=== PATIENT | female | born 1995 | race Caucasian/White ===

== ENCOUNTER 2022-06-22 11:14 | Inpatient (IN) | payer MEDICAID ==
[~2022-06-22] VITALS: Ht 157.5 cm; Wt 53.5 kg
[2022-06-22 13:17] LABS: BASOPHILS % (AUTO) 0.3 % (0.0-2.0); EOSINOPHILS % (AUTO) 0.2 % (1.0-6.0); HEMATOCRIT 38.7 % (36-46); HEMOGLOBIN 13.2 g/dL (12.0-16.0); LYMPHOCYTES # (AUTO) 1.3 K/uL (1.0-4.8); LYMPHOCYTES % (AUTO) 17.8 % (22.0-44.0); MEAN CORPUSCULAR HEMOGLOBIN 32.3 pg (26.0-34.0); MEAN CORPUSCULAR VOLUME 95 fL (80-100); MONOCYTES # (AUTO) 0.3 K/uL (0.1-1.0); MONOCYTES % (AUTO) 3.7 % (2.0-9.0); NEUTROPHILS # (AUTO) 5.6 K/uL (1.8-7.7); PLATELET COUNT (AUTO) 280 K/uL (150-450); RED BLOOD CELL COUNT(AUTO) 4.08 MIL/uL (4.00-5.20); RED CELL DISTRIBUTION WIDTH 12.4 % (11.5-14.5)
[2022-06-22 13:20] LABS: ANION GAP 7 mmol/L (8-16); CALCIUM, TOTAL 8.7 mg/dL (8.8-10.5); CARBON DIOXIDE 28 mmol/L (22-29); CHLORIDE 99 mmol/L (98-107); GLOMERULAR FILTR. RATE CALC > 60 mL/min (>60); GLUCOSE,RANDOM 107 mg/dL (70-110); POTASSIUM 3.3 mmol/L (3.5-5.1); SODIUM SERUM 134 mmol/L (136-145); UREA NITROGEN, BLOOD 11 mg/dL (7-18)
[2022-06-22 13:25] LABS: COVID AG,FIA SOURCE NASOPHARYNGEAL
[2022-06-22 13:35] LABS: ALANINE AMINOTRANSFERASE 51 U/L (12-78); ALBUMIN 3.8 g/dL (3.4-5.0); ALKALINE PHOSPHATASE 83 U/L (46-116); ASPARTATE AMINOTRANSFERASE 39 U/L (15-37); BILIRUBIN,TOTAL 0.4 mg/dL (0.1-1.0); HCG,QUANTITATIVE < 1 mIU/mL (0-6); THYROID STIMULATING HORMONE 0.34 uIU/mL (0.36-3.74); TOTAL PROTEIN, SERUM 8.1 g/dL (6.4-8.2)
[2022-06-22] MEDS ORDERED: POTASSIUM CHLORIDE 20 MEQ ER TABLET PO ONE (14:30)
[2022-06-22 17:52] VITALS: BP 115/75
[2022-06-22] MEDS ORDERED: INFLUENZA VIRUS VACCINE QVS 2022-23 (6MO+)/PF 60 MCG/0.5 ML SYRINGE IM. ONE (18:15)
[2022-06-23] MEDS: ZOLPIDEM TARTRATE 10 MG TABLET PO PRN (02:18)
[2022-06-23 08:25] VITALS: BP 118/74
[2022-06-23] MEDS: LORazepam 2 MG TABLET PO PRN (10:52)
[2022-06-23] MEDS: HALOPERIDOL 5 MG TABLET PO PRN (10:52)
[2022-06-23] MEDS ORDERED: MAGNESIUM HYDROXIDE SUSPENSION 30 ML UDCUP PO PRN (15:45)
[2022-06-23] MEDS ORDERED: ALBUTEROL SULFATE HFA 90 MCG/PUFF 8 GM INHALER IH PRN (15:45)
[2022-06-23] MEDS ORDERED: ACETAMINOPHEN 325 MG TABLET PO PRN (15:45)
[2022-06-23] MEDS ORDERED: GuaiFENesin/D-METHORPHAN [SUGAR-FREE] 200-20MG/10 ML SYRUP UDCUP PO PRN (15:45)
[2022-06-23] MEDS ORDERED: LOPERAMIDE HCL 2 MG CAPSULE PO PRN (15:45)
[2022-06-23] MEDS ORDERED: NICOTINE 14 MG/24 HOUR PATCH TD PRN (15:45)
[2022-06-23] MEDS ORDERED: CloNIDine HCL 0.1 MG TABLET PO PRN (15:45)
[2022-06-23] MEDS ORDERED: IBUPROFEN 400 MG TABLET PO PRN (15:45)
[2022-06-23] MEDS ORDERED: PETROLATUM,WHITE 28 GM JELLY TP PRN (15:45)
[2022-06-23] MEDS ORDERED: MAG HYDROX/AL HYDROX/SIMETH ES 30 ML SUSPENSION UDCUP PO PRN (15:45)
[2022-06-23] MEDS ORDERED: DOCUSATE SODIUM 100 MG CAPSULE PO PRN (15:45)
[2022-06-24] MEDS: QUEtiapine FUMARATE 100 MG TABLET PO SCH ×2 (10:31→20:10)
[2022-06-24 10:54] VITALS: BP 127/84
[2022-06-24] MEDS: LORazepam 2 MG TABLET PO PRN (14:18)
[2022-06-24 20:03] VITALS: BP 138/80
[2022-06-25] MEDS: ONDANSETRON HCL 4 MG TABLET PO PRN ×2 (05:49→12:32)
[2022-06-25] MEDS: HALOPERIDOL 5 MG TABLET PO PRN (08:18)
[2022-06-25] MEDS: QUEtiapine FUMARATE 100 MG TABLET PO SCH ×2 (08:19→21:00)
[2022-06-25 10:08] VITALS: BP 124/86
[2022-06-25 10:54] LABS: POTASSIUM 4.5 mmol/L (3.5-5.1)
[2022-06-25] MEDS: ONDANSETRON HCL 4 MG/2 ML VIAL IM PRN ×2 (13:11→23:34)
[2022-06-25 18:41] LABS: GLUCOMETER DEV NAME(LOC) BV3S.; GLUCOSE,POINT OF CARE 113 MG/DL (70-110)
[2022-06-25 19:53] VITALS: BP 124/86
[2022-06-26 00:23] VITALS: BP 108/70
[2022-06-26 09:10] VITALS: BP 112/69
[2022-06-26] MEDS: LORazepam 2 MG TABLET PO PRN (09:22)
[2022-06-26] MEDS: QUEtiapine FUMARATE 100 MG TABLET PO SCH ×2 (09:22→20:50)
[2022-06-26] MEDS: ONDANSETRON HCL 4 MG TABLET PO PRN (20:50)
[2022-06-26 20:54] VITALS: BP 111/86
[2022-06-27] MEDS: QUEtiapine FUMARATE 100 MG TABLET PO SCH ×2 (07:56→21:50)
[2022-06-27 09:21] VITALS: BP 100/86
[2022-06-27 13:37] VITALS: BP 111/83
[2022-06-27 13:40] VITALS: BP 99/56
[2022-06-27 13:45] VITALS: BP 114/69
[2022-06-27 13:46] LABS: GLUCOMETER DEV NAME(LOC) BV3S.; GLUCOSE,POINT OF CARE 117 MG/DL (70-110)
[2022-06-27 22:00] VITALS: BP 124/84
[2022-06-27] MEDS: ZOLPIDEM TARTRATE 10 MG TABLET PO PRN (22:04)
[2022-06-28] MEDS: QUEtiapine FUMARATE 100 MG TABLET PO SCH ×2 (08:18→20:32)
[2022-06-28 08:24] VITALS: BP 114/66
[2022-06-28] MEDS ORDERED: POTASSIUM CHLORIDE 20 MEQ ER TABLET PO ONE (14:15)
[2022-06-28 15:11] LABS: GLUCOMETER DEV NAME(LOC) POC.BV
[2022-06-28] MEDS ORDERED: LOPERAMIDE HCL 2 MG CAPSULE PO PRN (15:45)
[2022-06-28] MEDS: ONDANSETRON HCL 4 MG/2 ML VIAL IM PRN (18:06)
[2022-06-28 18:21] LABS: GLUCOMETER DEV NAME(LOC) BV3S.; GLUCOSE,POINT OF CARE 102 MG/DL (70-110)
[2022-06-28] MEDS: LevETIRAcetam 500 MG TABLET PO SCH (20:32)
[2022-06-28] MEDS: OMEPRAZOLE 20 MG CAPSULE PO SCH (20:32)
[2022-06-29 07:03] VITALS: BP 107/62
[2022-06-29 07:59] LABS: BASOPHILS % (AUTO) 0.2 % (0.0-2.0); EOSINOPHILS % (AUTO) 2.4 % (1.0-6.0); HEMATOCRIT 43.2 % (36-46); LYMPHOCYTES # (AUTO) 2.5 K/uL (1.0-4.8); MEAN CORPUSCULAR HGB CONC 34.7 G/dL (31.0-37.0); MEAN CORPUSCULAR VOLUME 95 fL (80-100); MONOCYTES # (AUTO) 0.8 K/uL (0.1-1.0); MONOCYTES % (AUTO) 7.1 % (2.0-9.0); NEUTROPHILS # (AUTO) 7.3 K/uL (1.8-7.7); NEUTROPHILS % (AUTO) 67.3 % (40.0-70.0); PLATELET COUNT (AUTO) 263 K/uL (150-450); RED BLOOD CELL COUNT(AUTO) 4.55 MIL/uL (4.00-5.20); RED CELL DISTRIBUTION WIDTH 12.2 % (11.5-14.5)
[2022-06-29 08:26] LABS: ANION GAP 9 mmol/L (8-16); CALCIUM, TOTAL 8.6 mg/dL (8.8-10.5); CARBON DIOXIDE 26 mmol/L (22-29); CHLORIDE 103 mmol/L (98-107); CREATININE 0.78 mg/dL (0.60-1.30); GLOMERULAR FILTR. RATE CALC > 60 mL/min (>60); GLUCOSE,RANDOM 95 mg/dL (70-110); LIPASE 366 U/L (73-393); POTASSIUM 3.9 mmol/L (3.5-5.1); SODIUM SERUM 138 mmol/L (136-145); UREA NITROGEN, BLOOD 14 mg/dL (7-18)
[2022-06-29] MEDS: QUEtiapine FUMARATE 200 MG TABLET PO SCH ×2 (08:26→20:08)
[2022-06-29] MEDS: OMEPRAZOLE 20 MG CAPSULE PO SCH (08:26)
[2022-06-29] MEDS: MetroNIDAZOLE 500 MG TABLET PO SCH ×3 (08:26→16:56)
[2022-06-29] MEDS: LevETIRAcetam 500 MG TABLET PO SCH ×2 (08:26→16:56)
[2022-06-29 20:03] VITALS: BP 113/60
[2022-06-29] MEDS: ZOLPIDEM TARTRATE 10 MG TABLET PO PRN (20:25)
[2022-06-30] MEDS: LevETIRAcetam 500 MG TABLET PO SCH ×2 (08:27→17:05)
[2022-06-30] MEDS: OMEPRAZOLE 20 MG CAPSULE PO SCH (08:27)
[2022-06-30] MEDS: QUEtiapine FUMARATE 200 MG TABLET PO SCH ×2 (08:27→20:15)
[2022-06-30] MEDS: MetroNIDAZOLE 500 MG TABLET PO SCH ×3 (08:27→17:05)
[2022-06-30] MEDS: LORazepam 2 MG TABLET PO PRN ×2 (08:29→19:18)
[2022-06-30 08:35] LABS: APPEARANCE,URINE CLEAR (CLEAR); BILIRUBIN,URINE NEGATIVE (NEGATIVE); GLUCOSE, URINE (UA) NEGATIVE (NEGATIVE); KETONES,URINE NEGATIVE (NEGATIVE); LEUKOCYTE ESTERASE ,URINE SMALL (NEGATIVE); NITRATE,URINE NEGATIVE (NEGATIVE); OCCULT BLOOD,URINE NEGATIVE (NEGATIVE); PROTEIN,URINE TRACE mg/dL (NEGATIVE); SPECIFIC GRAVITIY, URINE 1.022 (1.003-1.030); UROBILINOGEN,URINE <=1.0 mg/dL (<=1.0)
[2022-06-30 09:56] LABS: BACTERIA,URINE Few /HPF (None Seen); RBC,URINE 0-2 /HPF (0-2); SQUAMOUS EPITHELIAL CELL,UR Few /LPF (None Seen); WBC,URINE 0-2 /HPF (0-5)
[2022-06-30 09:57] LABS: CALCIUM OXALATE CRYSTALS,UR Rare /LPF (None Seen)
[2022-06-30 15:36] LABS: AMPHET/METH SCREEN,URINE NEGATIVE (NEGATIVE); BARBITURATE SCREEN, URINE NEGATIVE (NEGATIVE); BENZODIAZEPINES SCREEN,URINE NEGATIVE (NEGATIVE); CANNABINOID SCREEN,URINE NEGATIVE (NEGATIVE); COCAINE SCREEN,URINE NEGATIVE (NEGATIVE); METHADONE SCREEN, URINE NEGATIVE (NEGATIVE); OPIATE SCREEN,URINE NEGATIVE (NEGATIVE); PHENCYCLIDINE SCREEN,URINE NEGATIVE (NEGATIVE)
[2022-06-30 20:03] VITALS: BP 112/62
[2022-06-30] MEDS: ZOLPIDEM TARTRATE 10 MG TABLET PO PRN (20:15)
[2022-07-01 08:20] VITALS: BP 122/86
[2022-07-01] MEDS: QUEtiapine FUMARATE 200 MG TABLET PO SCH ×2 (08:41→20:22)
[2022-07-01] MEDS: OMEPRAZOLE 20 MG CAPSULE PO SCH (08:42)
[2022-07-01] MEDS: LevETIRAcetam 500 MG TABLET PO SCH ×2 (08:42→16:17)
[2022-07-01] MEDS: MetroNIDAZOLE 500 MG TABLET PO SCH ×3 (08:42→16:17)
[2022-07-01] MEDS: HALOPERIDOL 5 MG TABLET PO PRN (23:11)
[2022-07-01] MEDS: LORazepam 2 MG TABLET PO PRN (23:11)
[2022-07-01] MEDS: ZOLPIDEM TARTRATE 10 MG TABLET PO PRN (23:11)
[2022-07-01 23:17] VITALS: BP 130/75
[2022-07-02] MEDS: LevETIRAcetam 500 MG TABLET PO SCH ×2 (08:06→16:55)
[2022-07-02] MEDS: QUEtiapine FUMARATE 200 MG TABLET PO SCH ×2 (08:06→20:27)
[2022-07-02] MEDS: MetroNIDAZOLE 500 MG TABLET PO SCH ×3 (08:06→16:54)
[2022-07-02] MEDS: OMEPRAZOLE 20 MG CAPSULE PO SCH (08:06)
[2022-07-02 08:28] VITALS: BP 108/66
[2022-07-02 20:48] VITALS: BP 110/74
[2022-07-02] MEDS: ZOLPIDEM TARTRATE 10 MG TABLET PO PRN (21:31)
[2022-07-03] MEDS: LevETIRAcetam 500 MG TABLET PO SCH ×2 (08:07→16:21)
[2022-07-03] MEDS: QUEtiapine FUMARATE 200 MG TABLET PO SCH ×2 (08:07→20:43)
[2022-07-03] MEDS: MetroNIDAZOLE 500 MG TABLET PO SCH ×3 (08:07→16:21)
[2022-07-03] MEDS: OMEPRAZOLE 20 MG CAPSULE PO SCH (08:08)
[2022-07-03 08:13] VITALS: BP 110/68
[2022-07-03] MEDS ORDERED: LORazepam 2 MG/ML VIAL ONE (10:26)
[2022-07-03] MEDS ORDERED: DiphenhydrAMINE HCL 50 MG/ML VIAL ONE (10:26)
[2022-07-03] MEDS ORDERED: HALOPERIDOL LACTATE 5 MG/ML VIAL IM ONE (10:30)
[2022-07-03] MEDS ORDERED: LORazepam 2 MG/ML VIAL IM ONE (10:30)
[2022-07-03] MEDS ORDERED: DiphenhydrAMINE HCL 50 MG/ML VIAL IM ONE (10:30)
[2022-07-03 20:00] VITALS: BP 118/76
[2022-07-04] MEDS: HALOPERIDOL 5 MG TABLET PO PRN ×2 (08:05→16:33)
[2022-07-04] MEDS: QUEtiapine FUMARATE 200 MG TABLET PO SCH ×2 (08:05→20:13)
[2022-07-04] MEDS: OMEPRAZOLE 20 MG CAPSULE PO SCH (08:05)
[2022-07-04] MEDS: LORazepam 2 MG TABLET PO PRN ×2 (08:05→16:33)
[2022-07-04] MEDS: MetroNIDAZOLE 500 MG TABLET PO SCH ×3 (08:05→16:33)
[2022-07-04] MEDS: LevETIRAcetam 500 MG TABLET PO SCH ×2 (08:05→16:33)
[2022-07-04 09:00] VITALS: BP 112/68
[2022-07-04 20:13] VITALS: BP 109/61
[2022-07-05 08:17] VITALS: BP 103/72
[2022-07-05] MEDS: MetroNIDAZOLE 500 MG TABLET PO SCH ×3 (09:17→18:28)
[2022-07-05] MEDS: HALOPERIDOL 5 MG TABLET PO PRN (09:17)
[2022-07-05] MEDS: LORazepam 2 MG TABLET PO PRN (09:17)
[2022-07-05] MEDS: LevETIRAcetam 500 MG TABLET PO SCH ×2 (09:17→18:28)
[2022-07-05] MEDS: OMEPRAZOLE 20 MG CAPSULE PO SCH (09:17)
[2022-07-05] MEDS: QUEtiapine FUMARATE 200 MG TABLET PO SCH ×2 (09:17→20:51)
[2022-07-05] MEDS ORDERED: LORazepam 2 MG TABLET PO PRN (13:45)
[2022-07-05 16:26] LABS: GLUCOMETER DEV NAME(LOC) POC.BV
[2022-07-05 20:18] VITALS: BP 108/71
[2022-07-06 08:16] VITALS: BP 114/64
[2022-07-06] MEDS: LevETIRAcetam 500 MG TABLET PO SCH ×2 (08:36→16:39)
[2022-07-06] MEDS: QUEtiapine FUMARATE 200 MG TABLET PO SCH ×2 (08:36→20:34)
[2022-07-06] MEDS: MetroNIDAZOLE 500 MG TABLET PO SCH ×3 (08:36→16:39)
[2022-07-06] MEDS: OMEPRAZOLE 20 MG CAPSULE PO SCH (08:36)
[2022-07-06] MEDS: LORazepam 1 MG TABLET PO PRN (17:22)
[2022-07-06] MEDS: ZOLPIDEM TARTRATE 10 MG TABLET PO PRN (20:34)
[2022-07-06 22:19] VITALS: BP 103/59
[2022-07-07] MEDS: HALOPERIDOL 5 MG TABLET PO PRN (05:00)
[2022-07-07] MEDS: LORazepam 1 MG TABLET PO PRN ×2 (05:00→08:19)
[2022-07-07 08:14] VITALS: BP 110/73
[2022-07-07] MEDS: QUEtiapine FUMARATE 200 MG TABLET PO SCH ×2 (08:18→20:32)
[2022-07-07] MEDS: OMEPRAZOLE 20 MG CAPSULE PO SCH (08:18)
[2022-07-07] MEDS: MetroNIDAZOLE 500 MG TABLET PO SCH ×3 (08:18→16:50)
[2022-07-07] MEDS: LevETIRAcetam 500 MG TABLET PO SCH ×2 (08:18→16:49)
[2022-07-07 20:05] VITALS: BP 107/75
[2022-07-07] MEDS: ZOLPIDEM TARTRATE 10 MG TABLET PO PRN (20:32)
[2022-07-08] MEDS: MetroNIDAZOLE 500 MG TABLET PO SCH (08:21)
[2022-07-08] MEDS: LevETIRAcetam 500 MG TABLET PO SCH (08:21)
[2022-07-08] MEDS: QUEtiapine FUMARATE 200 MG TABLET PO SCH (08:21)
[2022-07-08] MEDS: OMEPRAZOLE 20 MG CAPSULE PO SCH (08:21)
[2022-07-08] MEDS: LORazepam 1 MG TABLET PO PRN (08:24)
[2022-07-08] MEDS: HALOPERIDOL 5 MG TABLET PO PRN (08:24)
[2022-07-08 09:13] VITALS: BP 108/69
[2022-07-08] MEDS ORDERED: LEVE500T8 PO (09:57)
[2022-07-08] MEDS ORDERED: QUET200T30 PO (09:57)
== END 2022-07-08 13:05 | disposition home or self-care (01) | DRG 750 ==
LOC: EMS 11:24 → B3A 15:22
PROVIDERS: ADMIT Psychiatry & Neurology Psychiatry; ATTEND Psychiatry & Neurology Psychiatry
DX: F20.0 Paranoid schizophrenia (principal); R56.9 Unspecified convulsions; E87.1 Hypo-osmolality and hyponatremia; E87.6 Hypokalemia; F11.20 Opioid dependence, uncomplicated; F15.10 Other stimulant abuse, uncomplicated; G47.00 Insomnia, unspecified; Z20.822 Contact with and (suspected) exposure to COVID-19; Z79.899 Other long term (current) drug therapy
CPT/HCPCS: 80048; 80053; 80307; 81001; 82962; 83690; 84132; 84443; 84702; 85025; 99285; G0480; J1200; J1630; J2060; J2405; Q0162

== ENCOUNTER 2022-06-27 14:10 | Emergency (ER) | payer MEDICAID ==
[~2022-06-27] VITALS: Ht 157.5 cm; Wt 50.0 kg
[2022-06-27] MEDS ORDERED: KETOROLAC TROMETHAMINE 30 MG/ML VIAL IVP ONE (14:45)
[2022-06-27] MEDS ORDERED: SODIUM CHLORIDE 0.9% 1,000 ML IV ONE (14:45)
[2022-06-27 15:11] LABS: BASOPHILS % (AUTO) 0.5 % (0.0-2.0); EOSINOPHILS % (AUTO) 0.7 % (1.0-6.0); HEMATOCRIT 49.1 % (36-46); HEMOGLOBIN 16.6 g/dL (12.0-16.0); LYMPHOCYTES # (AUTO) 2.2 K/uL (1.0-4.8); LYMPHOCYTES % (AUTO) 29.9 % (22.0-44.0); MEAN CORPUSCULAR HEMOGLOBIN 32.2 pg (26.0-34.0); MEAN CORPUSCULAR HGB CONC 33.9 G/dL (31.0-37.0); MEAN CORPUSCULAR VOLUME 95 fL (80-100); MONOCYTES # (AUTO) 0.7 K/uL (0.1-1.0); MONOCYTES % (AUTO) 9.8 % (2.0-9.0); NEUTROPHILS # (AUTO) 4.4 K/uL (1.8-7.7); NEUTROPHILS % (AUTO) 59.1 % (40.0-70.0); PLATELET COUNT (AUTO) 301 K/uL (150-450); RED BLOOD CELL COUNT(AUTO) 5.17 MIL/uL (4.00-5.20); RED CELL DISTRIBUTION WIDTH 12.6 % (11.5-14.5)
[2022-06-27 15:19] LABS: ANION GAP 8 mmol/L (8-16); CALCIUM, TOTAL 8.9 mg/dL (8.8-10.5); CARBON DIOXIDE 34 mmol/L (22-29); CHLORIDE 93 mmol/L (98-107); CREATININE 1.01 mg/dL (0.60-1.30); GLOMERULAR FILTR. RATE CALC > 60 mL/min (>60); GLUCOSE,RANDOM 100 mg/dL (70-110); POTASSIUM 3.1 mmol/L (3.5-5.1); SODIUM SERUM 135 mmol/L (136-145); UREA NITROGEN, BLOOD 16 mg/dL (7-18)
[2022-06-27 17:23] VITALS: BP 90/60
== END 2022-06-27 21:36 | disposition home or self-care (01) ==
LOC: EMS 14:29
DX: R56.9 Unspecified convulsions (principal); R51.9 Headache, unspecified; F20.9 Schizophrenia, unspecified; F15.90 Other stimulant use, unspecified, uncomplicated
CPT/HCPCS: 99285; 96374; 70450; 96361; 80048; 85025; 36415; J1885; J7030

== ENCOUNTER 2023-07-02 23:11 | Inpatient (IN) | payer MEDICAID ==
[~2023-07-02] VITALS: Ht 157.5 cm; Wt 55.3 kg
[~2023-07-02 23:11] MED LIST: LEVE500T8 PO; QUET200T30 PO
[2023-07-03 02:02] LABS: BASOPHILS % (AUTO) 0.7 % (0.0-2.0); EOSINOPHILS % (AUTO) 4.3 % (1.0-6.0); HEMOGLOBIN 13.6 g/dL (12.0-16.0); LYMPHOCYTES # (AUTO) 2.4 K/uL (1.0-4.8); LYMPHOCYTES % (AUTO) 37.1 % (22.0-44.0); MEAN CORPUSCULAR HEMOGLOBIN 33.5 pg (26.0-34.0); MEAN CORPUSCULAR HGB CONC 34.9 G/dL (31.0-37.0); MEAN CORPUSCULAR VOLUME 96 fL (80-100); MONOCYTES # (AUTO) 0.5 K/uL (0.1-1.0); MONOCYTES % (AUTO) 8.2 % (2.0-9.0); NEUTROPHILS # (AUTO) 3.2 K/uL (1.8-7.7); NEUTROPHILS % (AUTO) 49.7 % (40.0-70.0); PLATELET COUNT (AUTO) 260 K/uL (150-450); RED BLOOD CELL COUNT(AUTO) 4.07 MIL/uL (4.00-5.20); RED CELL DISTRIBUTION WIDTH 13.2 % (11.5-14.5); WHITE BLOOD COUNT (AUTO) 6.4 K/uL (4.5-11.0)
[2023-07-03] MEDS: LORazepam 2 MG/ML VIAL IM ONE (02:06)
[2023-07-03] MEDS: HALOPERIDOL LACTATE 5 MG/ML VIAL IM ONE (02:06)
[2023-07-03] MEDS: DiphenhydrAMINE HCL 50 MG/ML VIAL IM ONE (02:06)
[2023-07-03 02:11] LABS: ANION GAP 7 mmol/L (8-16); CALCIUM, TOTAL 8.9 mg/dL (8.8-10.5); CARBON DIOXIDE 30 mmol/L (22-29); CHLORIDE 100 mmol/L (98-107); GLOMERULAR FILTR. RATE CALC > 60 mL/min (>60); GLUCOSE,RANDOM 83 mg/dL (70-110); POTASSIUM 3.6 mmol/L (3.5-5.1); SODIUM SERUM 137 mmol/L (136-145); UREA NITROGEN, BLOOD 13 mg/dL (7-18)
[2023-07-03 02:17] LABS: ALANINE AMINOTRANSFERASE 160 U/L (12-78); ALBUMIN 3.6 g/dL (3.4-5.0); ALKALINE PHOSPHATASE 106 U/L (46-116); ASPARTATE AMINOTRANSFERASE 122 U/L (15-37); BILIRUBIN,TOTAL 0.5 mg/dL (0.1-1.0); TOTAL PROTEIN, SERUM 7.1 g/dL (6.4-8.2)
[2023-07-03 02:19] LABS: ALCOHOL, BLOOD (SERUM) < 3 mg/dL (0-10)
[2023-07-03 02:45] LABS: COVID AG,FIA SOURCE NASAL SWAB
[2023-07-03 03:03] LABS: SARS-COV2 (COVID) ANTIGEN,FIA Negative (Negative)
[2023-07-03 14:43] LABS: PH,URINE DRUG SCREEN 7.5 (5.0-8.0)
[2023-07-03 14:52] LABS: ALCOHOL, URINE DRUG SCREEN NEGATIVE (NEGATIVE); AMPHET/METH SCREEN,URINE POSITIVE (NEGATIVE); BARBITURATE SCREEN, URINE NEGATIVE (NEGATIVE); BENZODIAZEPINES SCREEN,URINE NEGATIVE (NEGATIVE); CANNABINOID SCREEN,URINE POSITIVE (NEGATIVE); COCAINE SCREEN,URINE NEGATIVE (NEGATIVE); METHADONE SCREEN, URINE NEGATIVE (NEGATIVE); OPIATE SCREEN,URINE NEGATIVE (NEGATIVE); PHENCYCLIDINE SCREEN,URINE NEGATIVE (NEGATIVE)
[2023-07-03 18:05] LABS: APPEARANCE,URINE HAZY (CLEAR); BILIRUBIN,URINE NEGATIVE (NEGATIVE); COLOR,URINE LIGHT YELLOW (YELLOW); GLUCOSE, URINE (UA) NEGATIVE (NEGATIVE); KETONES,URINE NEGATIVE (NEGATIVE); LEUKOCYTE ESTERASE ,URINE LARGE (NEGATIVE); NITRATE,URINE POSITIVE (NEGATIVE); OCCULT BLOOD,URINE NEGATIVE (NEGATIVE); PH,URINE 7.5 (5.0-8.0); PROTEIN,URINE NEGATIVE (NEGATIVE); UROBILINOGEN,URINE <=1.0 mg/dL (<=1.0)
[2023-07-03 19:16] LABS: BACTERIA,URINE Moderate /HPF (None Seen); RBC,URINE 0-2 /HPF (0-2); SQUAMOUS EPITHELIAL CELL,UR Few /LPF (None Seen)
[2023-07-03 23:50] VITALS: BP 96/60; PULSE 81; RESP 18; TEMP 97.9; O2SAT 97
[2023-07-04] VITALS (11 sets, daily range): BP systolic 96–135; BP diastolic 60–85; PULSE 70–103; RESP 15–19; TEMP 97–98.1; O2SAT 95–99
[2023-07-04] MEDS ORDERED: INFLUENZA VIRUS VACCINE QVS 2023-24 (6MO+)/PF 60 MCG/0.5 ML SYRINGE IM. ONE (00:15)
[2023-07-04] MEDS ORDERED: PNEUMOCOCCAL VACCINE POLYVALENT 0.5 ML SYRINGE [PPSV23] IM. ONE (00:45)
[2023-07-04] MEDS ORDERED: GuaiFENesin/D-METHORPHAN [SUGAR-FREE] 200-20MG/10 ML SYRUP UDCUP PO PRN (10:30)
[2023-07-04] MEDS ORDERED: IBUPROFEN 600 MG TABLET PO PRN (10:30)
[2023-07-04] MEDS ORDERED: LOPERAMIDE HCL 2 MG CAPSULE PO PRN (10:30)
[2023-07-04] MEDS ORDERED: MAG HYDROX/ALUMINUM HYD/SIMETH ES 30 ML SUSPENSION UDCUP PO PRN (10:30)
[2023-07-04] MEDS ORDERED: HydrOXYzine PAMOATE 50 MG CAPSULE PO PRN ×2 (10:30)
[2023-07-04] MEDS ORDERED: TUBERCULIN, PURIFIED PROTEIN DERIVATIVE 5 TU/0.1 ML SYRINGE ID ONE (10:30)
[2023-07-04] MEDS ORDERED: MAGNESIUM HYDROXIDE SUSPENSION 30 ML UDCUP PO PRN (10:30)
[2023-07-04] MEDS: PALIPERIDONE PALMITATE 234 MG/1.5 ML SYRINGE IM ONE (12:03)
[2023-07-04] MEDS: CloNIDine HCL 0.1 MG TABLET PO SCH (12:22)
[2023-07-04] MEDS: THIAMINE 100 MG TABLET PO SCH (16:43)
[2023-07-04] MEDS: LevETIRAcetam 500 MG TABLET PO SCH (16:44)
[2023-07-04] MEDS: LORazepam 2 MG TABLET PO PRN (20:45)
[2023-07-04] MEDS: MELATONIN 5 MG TABLET PO SCH (21:10)
[2023-07-04] MEDS: NALTREXONE HCL 50 MG TABLET PO SCH (21:10)
[2023-07-04] MEDS: OLANZapine 5 MG RAPDIS TABLET PO SCH (21:10)
[2023-07-04] MEDS: ZOLPIDEM TARTRATE 10 MG TABLET PO PRN (22:05)
[2023-07-05] VITALS (8 sets, daily range): BP systolic 93–110; BP diastolic 57–79; PULSE 70–93; RESP 16–19; TEMP 97.2–98.6; O2SAT 98
[2023-07-05 07:35] LABS: CHOL/HDL RATIO 1.7 (3.9-5.7); FREE T4 (FREE THYROXINE) 1.27 ng/dL (0.76-1.46); THYROID STIMULATING HORMONE 0.27 uIU/mL (0.36-3.74)
[2023-07-05] MEDS: FLUoxetine HCL 20 MG CAPSULE PO SCH (08:38)
[2023-07-05] MEDS: OMEGA-3/DHA/EPA/FISH OIL 1,000 MG CAPSULE PO SCH (08:38)
[2023-07-05] MEDS: MULTIVITAMINS WITH MINERALS, THERAPEUTIC TABLET PO SCH (08:38)
[2023-07-05] MEDS: FOLIC ACID 1 MG TABLET PO SCH (08:39)
[2023-07-05] MEDS: NITROFURANTOIN MONOHYD/M-CRYST 100 MG CAPSULE [MACROBID] PO SCH (19:54)
[2023-07-06 02:02] VITALS: BP 106/65; PULSE 85; RESP 19; TEMP 97.3
[2023-07-06 06:50] VITALS: BP 118/80; PULSE 80; RESP 19; TEMP 98.1
[2023-07-06] MEDS: PROMETHAZINE HCL 25 MG TABLET PO PRN (09:34)
[2023-07-06 09:44] VITALS: BP 125/77; PULSE 102; RESP 18; TEMP 99
[2023-07-06 10:07] LABS: HEPATITIS A ANTIBODY IGM Negative (Negative); HEPATITIS B CORE IGM Negative (Negative)
[2023-07-06 21:45] VITALS: BP 126/85; PULSE 104; RESP 18; TEMP 98.6; O2SAT 97
[2023-07-06] MEDS: OLANZapine 10 MG RAPDIS TABLET PO SCH (22:05)
[2023-07-07] VITALS (7 sets, daily range): BP systolic 118–128; BP diastolic 78–89; PULSE 86–117; RESP 18–19; TEMP 97.2–98.2; O2SAT 98
[2023-07-07] MEDS: CloNIDine HCL 0.1 MG TABLET PO PRN (00:55)
[2023-07-08 06:18] VITALS: BP 128/82; PULSE 86; RESP 18
[2023-07-08 10:16] VITALS: BP 126/75; PULSE 90; RESP 18; TEMP 97.9; O2SAT 96
[2023-07-08 12:29] VITALS: BP 125/70; PULSE 70
[2023-07-08] MEDS: PALIPERIDONE PALMITATE 156 MG/ML SYRINGE IM ONE (12:57)
[2023-07-08 17:12] VITALS: BP 118/68; PULSE 65
[2023-07-08 21:53] VITALS: BP 130/73; PULSE 99; RESP 18; TEMP 96.6
[2023-07-09 06:25] VITALS: BP 121/72; PULSE 91; RESP 18; TEMP 97.1
[2023-07-09] MEDS: HALOPERIDOL 5 MG TABLET PO PRN (11:51)
[2023-07-09 12:24] VITALS: BP 113/71; PULSE 106; RESP 18; TEMP 97.7; O2SAT 100
[2023-07-09] MEDS ORDERED: FLUO20CA36 PO (18:15)
[2023-07-09] MEDS ORDERED: OMEG-135 PO (18:15)
[2023-07-09] MEDS ORDERED: LEVE500T8 PO (18:15)
[2023-07-09] MEDS ORDERED: OLAN10TA26 PO (18:15)
[2023-07-09] MEDS ORDERED: MELA5TAB40 PO (18:15)
[2023-07-09] MEDS ORDERED: NALT50TA33 PO (18:15)
[2023-07-09 21:38] VITALS: BP 132/85; PULSE 93; RESP 18; TEMP 97.9
[2023-07-09 23:06] VITALS: BP 132/88; PULSE 103; RESP 18; TEMP 98.2; O2SAT 98
[2023-07-10 06:19] VITALS: BP 119/69; PULSE 96; TEMP 97.5
[2023-07-10 07:39] LABS: ALANINE AMINOTRANSFERASE 165 U/L (12-78); ALKALINE PHOSPHATASE 122 U/L (46-116); ANION GAP 9 mmol/L (8-16); ASPARTATE AMINOTRANSFERASE 73 U/L (15-37); BILIRUBIN,TOTAL 0.4 mg/dL (0.1-1.0); CALCIUM, TOTAL 8.5 mg/dL (8.8-10.5); CARBON DIOXIDE 24 mmol/L (22-29); CHLORIDE 102 mmol/L (98-107); CREATININE 0.53 mg/dL (0.60-1.30); GLOMERULAR FILTR. RATE CALC > 60 mL/min (>60); GLUCOSE,RANDOM 98 mg/dL (70-110); SODIUM SERUM 135 mmol/L (136-145); TOTAL PROTEIN, SERUM 6.8 g/dL (6.4-8.2); UREA NITROGEN, BLOOD 12 mg/dL (7-18)
[2023-07-10 09:22] VITALS: BP 112/78; PULSE 88; RESP 19; TEMP 98.7
[2023-07-10 12:36] VITALS: BP 123/81
[2023-07-10 18:12] VITALS: BP 118/80
[2023-07-10 20:02] VITALS: BP 97/57; PULSE 109; RESP 18; TEMP 98.6
[2023-07-10 22:00] VITALS: BP 103/67; PULSE 97; RESP 18; TEMP 98
[2023-07-10] MEDS ORDERED: PALIPERIDONE PALMITATE 234 MG/1.5 ML SYRINGE IM ONE (23:15)
[2023-07-11 06:00] VITALS: BP 114/73; PULSE 102; RESP 18; TEMP 97.8
[2023-07-11 09:22] VITALS: BP 106/69; PULSE 100; RESP 18; TEMP 97.5
[2023-07-11 13:07] LABS: HIV 1-2 SCREEN 4TH GEN W/RFLX Non Reactive (Non Reactive)
[2023-07-11 13:19] VITALS: BP 101/70; PULSE 109; RESP 18; TEMP 97.7
[2023-07-11] MEDS: DIVALPROEX SODIUM 500 MG ER TABLET PO SCH (20:51)
[2023-07-11 21:01] VITALS: BP 103/71; PULSE 102; RESP 18; TEMP 97.6
[2023-07-12 08:48] VITALS: BP 110/61; PULSE 115; RESP 17; TEMP 99.1
[2023-07-12 10:07] LABS: HEPATITIS C AB (EIA) Reactive (Non Reactive); HEPATITIS C RT-PCR,QNT 578000 IU/mL
[2023-07-12 16:54] VITALS: BP 119/86; PULSE 119; RESP 18; TEMP 98.1
[2023-07-12 20:42] VITALS: BP 98/53; PULSE 107; RESP 18; TEMP 96.9
[2023-07-13 06:18] VITALS: BP 103/77; PULSE 109; RESP 18; TEMP 97.6
[2023-07-13 08:56] VITALS: BP 100/60; PULSE 110; RESP 18; TEMP 98.1; TEMP 98.8
[2023-07-13 20:33] VITALS: BP 109/68; PULSE 113; RESP 18; TEMP 98.8
[2023-07-13 20:47] VITALS: BP 105/63; PULSE 72; RESP 18; TEMP 97.5
[2023-07-13 22:10] VITALS: BP 100/57; PULSE 92; RESP 18; TEMP 97.4
[2023-07-14 06:18] VITALS: BP 98/54; PULSE 89; RESP 18; TEMP 97.6
[2023-07-14 08:57] VITALS: BP 116/74; PULSE 100; RESP 18; TEMP 98.4
[2023-07-14] MEDS ORDERED: PALIPERIDONE PALMITATE 156 MG/ML SYRINGE IM ONE (09:00)
[2023-07-14 20:20] VITALS: BP 106/63; PULSE 106; RESP 18; TEMP 97.5
[2023-07-14 22:00] VITALS: BP 97/54; PULSE 92; RESP 18
[2023-07-15 06:35] VITALS: BP 92/56; PULSE 90; RESP 18
[2023-07-15 08:10] VITALS: BP 105/75; PULSE 105; RESP 16; TEMP 97.8
[2023-07-15 11:25] VITALS: BP 113/69; PULSE 102; RESP 18
[2023-07-15 16:22] VITALS: BP 106/62; PULSE 105; RESP 18
[2023-07-15] MEDS: MAG HYDROX/ALUMINUM HYD/SIMETH ES 30 ML SUSPENSION UDCUP PO PRN (18:16)
[2023-07-15] MEDS: ACETAMINOPHEN 325 MG TABLET PO PRN (18:17)
[2023-07-15 20:00] VITALS: BP 105/69; PULSE 93; RESP 20; TEMP 97.5
[2023-07-15 21:57] VITALS: BP 95/55; PULSE 92; RESP 18
[2023-07-16 06:25] VITALS: BP 106/66; PULSE 109; RESP 18; TEMP 98
[2023-07-16 08:11] VITALS: BP 119/73; PULSE 102; RESP 16; TEMP 98
[2023-07-16 21:55] VITALS: BP 91/57; PULSE 98; RESP 18
[2023-07-17 06:10] VITALS: BP 110/70; PULSE 18; RESP 18; TEMP 97.6
[2023-07-17 08:23] VITALS: BP 98/65; PULSE 18; RESP 18; TEMP 98.6
== END 2023-07-17 14:00 | disposition home or self-care (01) | DRG 750 ==
LOC: EMS 23:12 → 3EC 07-03 21:05
PROVIDERS: ADMIT Psychiatry & Neurology Psychiatry; ATTEND Psychiatry & Neurology Psychiatry
PROC: GZHZZZZ Group Psychotherapy (ICD-10-PCS; principal; 2023-07-05)
PROC: GZ51ZZZ Individual Psychotherapy, Behavioral (ICD-10-PCS; 2023-07-05)
PROC: GZ58ZZZ Individual Psychotherapy, Cognitive-Behavioral (ICD-10-PCS; 2023-07-05)
DX: F20.0 Paranoid schizophrenia (principal); R45.851 Suicidal ideations; N39.0 Urinary tract infection, site not specified; Z59.00 Homelessness unspecified; G47.00 Insomnia, unspecified; J44.9 Chronic obstructive pulmonary disease, unspecified; F90.9 Attention-deficit hyperactivity disorder, unspecified type; Z20.822 Contact with and (suspected) exposure to COVID-19; F19.10 Other psychoactive substance abuse, uncomplicated; F11.90 Opioid use, unspecified, uncomplicated; F15.10 Other stimulant abuse, uncomplicated; Z79.899 Other long term (current) drug therapy; Z91.199 Patient's noncompliance with other medical treatment and regimen due to unspecified reason
CPT/HCPCS: 80053; 80061; 80074; 80164; 80307; 81001; 83036; 84439; 84443; 84703; 85025; 86592; 87086; 87186; 87389; 87491; 87522; 87591; 99291; G0480; J1200; J1630; J2060; Q9967

== ENCOUNTER 2024-01-27 04:06 | Emergency (ER) | payer MEDICAID, OTHER ==
[~2024-01-27 04:06] MED LIST changes: +FLUO-418 PO; +MELA5TAB40 PO; +NALT50TA33 PO; +OLAN10TA26 PO; +OMEG-135 PO; -QUET200T30 PO
== END 2024-01-27 04:54 | disposition left against medical advice (07) ==
LOC: EMS 04:06
DX: R50.9 Fever, unspecified (principal); Z53.21 Procedure and treatment not carried out due to patient leaving prior to being seen by health care provider

== ENCOUNTER 2024-02-23 10:32 | Inpatient (IN) | payer MEDICAID, OTHER ==
[~2024-02-23] VITALS: Ht 152.4 cm; Wt 47.6 kg
[2024-02-23] MEDS ORDERED: LORazepam 2 MG/ML VIAL ONE (11:24)
[2024-02-23] MEDS ORDERED: DiphenhydrAMINE HCL 50 MG/ML VIAL ONE (11:24)
[2024-02-23] MEDS ORDERED: HALOPERIDOL LACTATE 5 MG/ML VIAL ONE (11:24)
[2024-02-23] MEDS: DiphenhydrAMINE HCL 50 MG/ML VIAL IM ONE (11:33)
[2024-02-23] MEDS: HALOPERIDOL LACTATE 5 MG/ML VIAL IM ONE (11:34)
[2024-02-23] MEDS: LORazepam 2 MG/ML VIAL IM ONE (11:34)
[2024-02-23 12:04] LABS: COVID AG,FIA SOURCE NASAL SWAB
[2024-02-23 12:19] LABS: BASOPHILS % (AUTO) 0.3 % (0.0-2.0); EOSINOPHILS % (AUTO) 4.4 % (1.0-6.0); HEMATOCRIT 37.6 % (36-46); HEMOGLOBIN 12.5 g/dL (12.0-16.0); LYMPHOCYTES # (AUTO) 1.9 K/uL (1.0-4.8); LYMPHOCYTES % (AUTO) 40.3 % (22.0-44.0); MEAN CORPUSCULAR HEMOGLOBIN 31.6 pg (26.0-34.0); MEAN CORPUSCULAR HGB CONC 33.2 G/dL (31.0-37.0); MEAN CORPUSCULAR VOLUME 95 fL (80-100); MONOCYTES # (AUTO) 0.5 K/uL (0.1-1.0); MONOCYTES % (AUTO) 11.1 % (2.0-9.0); NEUTROPHILS # (AUTO) 2.1 K/uL (1.8-7.7); NEUTROPHILS % (AUTO) 43.9 % (40.0-70.0); PLATELET COUNT (AUTO) 221 K/uL (150-450); RED BLOOD CELL COUNT(AUTO) 3.96 MIL/uL (4.00-5.20); WHITE BLOOD COUNT (AUTO) 4.7 K/uL (4.5-11.0)
[2024-02-23 12:23] LABS: SARS-COV2 (COVID) ANTIGEN,FIA Negative (Negative)
[2024-02-23 12:31] LABS: ANION GAP 5 mmol/L (8-16); CALCIUM, TOTAL 8.2 mg/dL (8.8-10.5); CARBON DIOXIDE 29 mmol/L (22-29); CHLORIDE 103 mmol/L (98-107); CREATININE 0.74 mg/dL (0.60-1.30); GLOMERULAR FILTR. RATE CALC > 60 mL/min (>60); GLUCOSE,RANDOM 78 mg/dL (70-110); POTASSIUM 3.7 mmol/L (3.5-5.1); SODIUM SERUM 137 mmol/L (136-145); UREA NITROGEN, BLOOD 11 mg/dL (7-18)
[2024-02-23 12:40] LABS: ALCOHOL, BLOOD (SERUM) < 3 mg/dL (0-10)
[2024-02-23] MEDS ORDERED: ZOLPIDEM TARTRATE 10 MG TABLET PO PRN (17:00)
[2024-02-24 01:53] VITALS: O2SAT 100
[2024-02-24 06:50] VITALS: BP 99/63; PULSE 75; RESP 17; TEMP 97.8; O2SAT 98
[2024-02-24 12:00] VITALS: BP 107/69; PULSE 83; RESP 18; TEMP 97.8; O2SAT 98
[2024-02-24] MEDS ORDERED: CloNIDine HCL 0.1 MG TABLET PO PRN (16:30)
[2024-02-24] MEDS ORDERED: PETROLATUM,WHITE 28 GM JELLY TP PRN (16:30)
[2024-02-24] MEDS ORDERED: ONDANSETRON 4 MG TABLET PO PRN (16:30)
[2024-02-24] MEDS ORDERED: MAGNESIUM HYDROXIDE SUSPENSION 30 ML UDCUP PO PRN (16:30)
[2024-02-24] MEDS ORDERED: ALBUTEROL SULFATE HFA 90 MCG/PUFF 8 GM INHALER IH PRN (16:30)
[2024-02-24] MEDS ORDERED: IBUPROFEN 600 MG TABLET PO PRN (16:30)
[2024-02-24] MEDS ORDERED: DOCUSATE SODIUM 100 MG CAPSULE PO PRN (16:30)
[2024-02-24] MEDS ORDERED: ACETAMINOPHEN 325 MG TABLET PO PRN (16:30)
[2024-02-24] MEDS ORDERED: BENZOCAINE/MENTHOL LOZENGE PO PRN (16:30)
[2024-02-24] MEDS ORDERED: MAG HYDROX/ALUMINUM HYD/SIMETH ES 30 ML SUSPENSION UDCUP PO PRN (16:30)
[2024-02-24] MEDS ORDERED: BACITRACIN 28 GM OINTMENT TP PRN (16:30)
[2024-02-24] MEDS ORDERED: OMEPRAZOLE 20 MG CAPSULE PO PRN (16:30)
[2024-02-24] MEDS: LevETIRAcetam 500 MG TABLET PO SCH (16:54)
[2024-02-24 16:55] VITALS: BP 105/76; PULSE 86; RESP 16; TEMP 98.3; O2SAT 98
[2024-02-24 20:00] VITALS: BP 100/63; PULSE 91; RESP 17; TEMP 97.5; O2SAT 98
[2024-02-24] MEDS: NALTREXONE HCL 50 MG TABLET PO SCH (20:59)
[2024-02-25 08:12] VITALS: BP 116/74; PULSE 78; RESP 16; TEMP 97.6; O2SAT 96
[2024-02-25 09:48] VITALS: RESP 20
[2024-02-25] MEDS ORDERED: LORazepam 2 MG/ML VIAL ONE (09:53)
[2024-02-25] MEDS: LORazepam 2 MG/ML VIAL IM ONE (09:58)
[2024-02-25] MEDS: INFLUENZA VIRUS VACCINE TVS (6MO+) 2024-25/PF 45 MCG/0.5 ML SYRINGE IM. ONE (17:18)
[2024-02-25 20:43] VITALS: BP 116/71; PULSE 90; RESP 17; TEMP 97.8; O2SAT 98
[2024-02-26 04:43] VITALS: BP 107/76; PULSE 101; RESP 18; TEMP 98; O2SAT 98
[2024-02-26] MEDS: LORazepam 2 MG TABLET PO PRN (04:44)
[2024-02-26] MEDS: HALOPERIDOL 5 MG TABLET PO PRN (04:44)
[2024-02-26] MEDS: LOPERAMIDE HCL 2 MG CAPSULE PO PRN (09:02)
[2024-02-26 09:11] VITALS: BP 104/56; PULSE 136; RESP 18; TEMP 96.5; O2SAT 98
[2024-02-26 21:44] VITALS: BP 109/74; PULSE 84; RESP 18; TEMP 97.1; O2SAT 98
[2024-02-27] MEDS ORDERED: VALPROIC ACID 250 MG CAPSULE PO SCH (09:00)
== END 2024-02-27 07:26 | disposition short-term general hospital (02) | DRG 753 ==
LOC: EMS 10:38 → B3A 02-24 02:57
PROVIDERS: ADMIT Psychiatry & Neurology Psychiatry; ATTEND Psychiatry & Neurology Psychiatry
DX: F31.9 Bipolar disorder, unspecified (principal); F20.0 Paranoid schizophrenia; G40.909 Epilepsy, unspecified, not intractable, without status epilepticus; Z20.822 Contact with and (suspected) exposure to COVID-19; B18.2 Chronic viral hepatitis C; K59.00 Constipation, unspecified; G47.00 Insomnia, unspecified; F19.10 Other psychoactive substance abuse, uncomplicated; Z87.891 Personal history of nicotine dependence
CPT/HCPCS: 80048; 85025; 99285; G0480; J1200; J1630; J2060

== ENCOUNTER → 2024-02-25 | Emergency (ER) | payer MEDICAID, OTHER ==
[~2024-02-25] VITALS: Ht 162.6 cm; Wt 54.5 kg
[2024-02-25 10:45] VITALS: TEMP 98.3
[2024-02-25 12:13] VITALS: BP 132/75; PULSE 91; RESP 16; O2SAT 97
== END | disposition still patient (30) ==
LOC: EMS 10:30
DX: F41.0 Panic disorder [episodic paroxysmal anxiety] (principal); F25.9 Schizoaffective disorder, unspecified; F17.210 Nicotine dependence, cigarettes, uncomplicated; F15.90 Other stimulant use, unspecified, uncomplicated
CPT/HCPCS: 99285; Z7502

== ENCOUNTER 2024-02-28 15:59 | Inpatient (IN) | payer MEDICAID, OTHER ==
[~2024-02-28] VITALS: Ht 157.5 cm; Wt 53.6 kg
[2024-02-28 16:35] LABS: BASOPHILS % (AUTO) 0.6 % (0.0-2.0); EOSINOPHILS % (AUTO) 0.6 % (1.0-6.0); HEMATOCRIT 44.9 % (36-46); HEMOGLOBIN 14.9 g/dL (12.0-16.0); MEAN CORPUSCULAR HEMOGLOBIN 31.5 pg (26.0-34.0); MEAN CORPUSCULAR HGB CONC 33.2 G/dL (31.0-37.0); MEAN CORPUSCULAR VOLUME 95 fL (80-100); MONOCYTES # (AUTO) 0.8 K/uL (0.1-1.0); MONOCYTES % (AUTO) 10.9 % (2.0-9.0); NEUTROPHILS # (AUTO) 3.6 K/uL (1.8-7.7); NEUTROPHILS % (AUTO) 47.9 % (40.0-70.0); PLATELET COUNT (AUTO) 293 K/uL (150-450); RED BLOOD CELL COUNT(AUTO) 4.72 MIL/uL (4.00-5.20); RED CELL DISTRIBUTION WIDTH 14.1 % (11.5-14.5); WHITE BLOOD COUNT (AUTO) 7.6 K/uL (4.5-11.0)
[2024-02-28 16:42] LABS: COVID AG,FIA SOURCE NASAL SWAB
[2024-02-28 16:47] LABS: ANION GAP 10 mmol/L (8-16); CALCIUM, TOTAL 8.2 mg/dL (8.8-10.5); CARBON DIOXIDE 25 mmol/L (22-29); CHLORIDE 102 mmol/L (98-107); CREATININE 0.96 mg/dL (0.60-1.30); GLOMERULAR FILTR. RATE CALC > 60 mL/min (>60); GLUCOSE,RANDOM 77 mg/dL (70-110); POTASSIUM 4.1 mmol/L (3.5-5.1); SODIUM SERUM 137 mmol/L (136-145); UREA NITROGEN, BLOOD 13 mg/dL (7-18)
[2024-02-28 16:49] LABS: ALCOHOL, BLOOD (SERUM) < 3 mg/dL (0-10)
[2024-02-28 17:30] LABS: ALCOHOL, URINE DRUG SCREEN NEGATIVE (NEGATIVE); AMPHET/METH SCREEN,URINE POSITIVE (NEGATIVE); BARBITURATE SCREEN, URINE NEGATIVE (NEGATIVE); BENZODIAZEPINES SCREEN,URINE NEGATIVE (NEGATIVE); CANNABINOID SCREEN,URINE NEGATIVE (NEGATIVE); COCAINE SCREEN,URINE NEGATIVE (NEGATIVE); METHADONE SCREEN, URINE NEGATIVE (NEGATIVE); OPIATE SCREEN,URINE NEGATIVE (NEGATIVE); PHENCYCLIDINE SCREEN,URINE NEGATIVE (NEGATIVE)
[2024-02-28 17:47] LABS: SARS-COV2 (COVID) ANTIGEN,FIA Negative (Negative)
[2024-02-28] MEDS: LORazepam 2 MG TABLET PO PRN (20:13)
[2024-02-28] MEDS: HALOPERIDOL 5 MG TABLET PO PRN (20:31)
[2024-02-28] MEDS: DiphenhydrAMINE HCL 50 MG/ML VIAL IM ONE (20:54)
[2024-02-28] MEDS: LORazepam 2 MG/ML VIAL IM ONE (20:55)
[2024-02-28] MEDS: HALOPERIDOL LACTATE 5 MG/ML VIAL IM ONE (20:59)
[2024-02-29 00:46] VITALS: O2SAT 98
[2024-02-29] MEDS: LOPERAMIDE HCL 2 MG CAPSULE PO ONE (03:33)
[2024-02-29 08:05] LABS: HEMOGLOBIN A1C 5.1 % (3.8-5.6)
[2024-02-29 08:08] LABS: CHOL/HDL RATIO 1.7 (3.9-5.7)
[2024-02-29 08:18] LABS: APPEARANCE,URINE HAZY (CLEAR); BILIRUBIN,URINE NEGATIVE (NEGATIVE); COLOR,URINE LIGHT YELLOW (YELLOW); GLUCOSE, URINE (UA) NEGATIVE (NEGATIVE); KETONES,URINE TRACE mg/dL (NEGATIVE); LEUKOCYTE ESTERASE ,URINE NEGATIVE (NEGATIVE); NITRATE,URINE POSITIVE (NEGATIVE); OCCULT BLOOD,URINE LARGE (NEGATIVE); PROTEIN,URINE NEGATIVE (NEGATIVE); SPECIFIC GRAVITIY, URINE 1.014 (1.003-1.030); UROBILINOGEN,URINE <=1.0 mg/dL (<=1.0)
[2024-02-29 08:33] LABS: BACTERIA,URINE Many /HPF (None Seen); CALCIUM OXALATE CRYSTALS,UR Many /LPF (None Seen); WBC,URINE 0-2 /HPF (0-5)
[2024-02-29] MEDS: CEPHALEXIN MONOHYDRATE 500 MG CAPSULE PO ONE (09:04)
[2024-02-29 09:23] VITALS: BP 118/78; PULSE 107; RESP 16; TEMP 98.2; O2SAT 100
[2024-02-29] MEDS: LevETIRAcetam 500 MG TABLET PO SCH (16:59)
[2024-02-29] MEDS: VALPROIC ACID 250 MG CAPSULE PO SCH (16:59)
[2024-02-29 17:00] VITALS: BP 120/80; PULSE 101; RESP 20; TEMP 98.9; O2SAT 98
[2024-02-29 20:15] VITALS: BP 117/71; PULSE 110; RESP 18; TEMP 97.9; O2SAT 97
[2024-02-29] MEDS: OLANZapine 10 MG TABLET PO SCH (21:30)
[2024-03-01 06:06] LABS: HEPATITIS A ANTIBODY IGM Negative (Negative); HEPATITIS B CORE IGM Negative (Negative); HIV 1-2 SCREEN 4TH GEN W/RFLX Non Reactive (Non Reactive)
[2024-03-01 07:07] LABS: TREPONEMA PALLIDUM AB -TPPA Reactive (Non Reactive)
[2024-03-01 10:25] VITALS: BP 115/71; PULSE 115; RESP 18; TEMP 99; O2SAT 98
[2024-03-01 12:06] LABS: RPR QUANT. (TITER) 1:32 titer (NonRea<1:1)
[2024-03-01 20:24] VITALS: BP 112/76; PULSE 108; RESP 18; TEMP 98.4; O2SAT 98
[2024-03-02 10:09] VITALS: BP 108/70; PULSE 100; RESP 17; TEMP 96.8; O2SAT 98
[2024-03-02 20:24] VITALS: BP 96/62; PULSE 105; RESP 16; TEMP 97.6; O2SAT 98
[2024-03-02] MEDS: PENICILLIN G BENZATHINE LA 2,400,000 UNITS/4 ML SYRINGE IM ONE (20:56)
[2024-03-03] MEDS: PNEUMOCOCCAL VACCINE POLYVALENT 0.5 ML SYRINGE [PPSV23] IM. ONE (08:24)
[2024-03-03] MEDS: INFLUENZA VIRUS VACCINE TVS (6MO+) 2024-25/PF 45 MCG/0.5 ML SYRINGE IM. ONE (08:24)
[2024-03-03 08:54] VITALS: RESP 16
[2024-03-03 20:22] VITALS: BP 130/78; PULSE 110; RESP 18; TEMP 97.6; O2SAT 100
[2024-03-04] MEDS: ZOLPIDEM TARTRATE 10 MG TABLET PO PRN (01:31)
[2024-03-04 08:46] VITALS: RESP 16
== END 2024-03-04 19:02 | disposition home or self-care (01) | DRG 750 ==
LOC: EMS 15:59 → 3EC 02-29 09:19 → B3A 02-29 17:10
PROVIDERS: ADMIT Psychiatry & Neurology Psychiatry; ATTEND Psychiatry & Neurology Psychiatry
DX: F20.0 Paranoid schizophrenia (principal); G40.909 Epilepsy, unspecified, not intractable, without status epilepticus; R45.851 Suicidal ideations; F90.9 Attention-deficit hyperactivity disorder, unspecified type; Z20.822 Contact with and (suspected) exposure to COVID-19; B18.2 Chronic viral hepatitis C; F41.1 Generalized anxiety disorder; F19.10 Other psychoactive substance abuse, uncomplicated; F31.9 Bipolar disorder, unspecified; K59.00 Constipation, unspecified; G47.00 Insomnia, unspecified; Z59.00 Homelessness unspecified; Z87.891 Personal history of nicotine dependence
CPT/HCPCS: 80048; 80061; 80074; 80307; 81001; 83036; 85025; 86592; 86593; 86780; 87077; 87086; 87186; 87389; 87491; 87591; 90686; 93005; 99285; G0480; J0561; J1200; J2060

== ENCOUNTER 2024-03-22 19:06 | Inpatient (IN) | payer MEDICAID, OTHER ==
[~2024-03-22] VITALS: Ht 157.5 cm; Wt 66.7 kg
[2024-03-22 20:03] LABS: BASOPHILS % (AUTO) 0.4 % (0.0-2.0); EOSINOPHILS % (AUTO) 3.8 % (1.0-6.0); HEMATOCRIT 39.8 % (36-46); HEMOGLOBIN 13.4 g/dL (12.0-16.0); LYMPHOCYTES # (AUTO) 1.8 K/uL (1.0-4.8); MEAN CORPUSCULAR HEMOGLOBIN 31.9 pg (26.0-34.0); MEAN CORPUSCULAR HGB CONC 33.6 G/dL (31.0-37.0); MEAN CORPUSCULAR VOLUME 95 fL (80-100); MONOCYTES # (AUTO) 0.5 K/uL (0.1-1.0); MONOCYTES % (AUTO) 10.4 % (2.0-9.0); NEUTROPHILS # (AUTO) 2.1 K/uL (1.8-7.7); NEUTROPHILS % (AUTO) 46.4 % (40.0-70.0); PLATELET COUNT (AUTO) 245 K/uL (150-450); RED CELL DISTRIBUTION WIDTH 14.2 % (11.5-14.5); WHITE BLOOD COUNT (AUTO) 4.6 K/uL (4.5-11.0)
[2024-03-22 20:12] LABS: ANION GAP 3 mmol/L (8-16); CARBON DIOXIDE 32 mmol/L (22-29); CHLORIDE 101 mmol/L (98-107); CREATININE 0.78 mg/dL (0.60-1.30); GLOMERULAR FILTR. RATE CALC > 60 mL/min (>60); GLUCOSE,RANDOM 100 mg/dL (70-110); POTASSIUM 4.1 mmol/L (3.5-5.1); SODIUM SERUM 136 mmol/L (136-145); UREA NITROGEN, BLOOD 7 mg/dL (7-18)
[2024-03-22 20:31] LABS: ALCOHOL, BLOOD (SERUM) < 3 mg/dL (0-10)
[2024-03-22 22:32] LABS: COVID AG,FIA SOURCE NASAL SWAB
[2024-03-22 22:52] LABS: SARS-COV2 (COVID) ANTIGEN,FIA Negative (Negative)
[2024-03-22 23:43] LABS: PH,URINE DRUG SCREEN 6.5 (5.0-8.0)
[2024-03-22 23:52] LABS: ALCOHOL, URINE DRUG SCREEN NEGATIVE (NEGATIVE); AMPHET/METH SCREEN,URINE POSITIVE (NEGATIVE); BARBITURATE SCREEN, URINE NEGATIVE (NEGATIVE); BENZODIAZEPINES SCREEN,URINE NEGATIVE (NEGATIVE); CANNABINOID SCREEN,URINE POSITIVE (NEGATIVE); COCAINE SCREEN,URINE NEGATIVE (NEGATIVE); METHADONE SCREEN, URINE NEGATIVE (NEGATIVE); OPIATE SCREEN,URINE POSITIVE (NEGATIVE); PHENCYCLIDINE SCREEN,URINE NEGATIVE (NEGATIVE)
[2024-03-23] MEDS: LORazepam 1 MG TABLET PO ONE (07:00)
[2024-03-23] MEDS: HALOPERIDOL 5 MG TABLET PO ONE (07:00)
[2024-03-23 23:42] VITALS: O2SAT 99
[2024-03-24 00:33] VITALS: BP 96/50; PULSE 98; RESP 20; TEMP 97; O2SAT 99
[2024-03-24] MEDS: INFLUENZA VIRUS VACCINE TVS (6MO+) 2024-25/PF 45 MCG/0.5 ML SYRINGE IM. ONE (03:30)
[2024-03-24] MEDS: PNEUMOCOCCAL VACCINE POLYVALENT 0.5 ML SYRINGE [PPSV23] IM. ONE (03:30)
[2024-03-24 08:20] VITALS: BP 105/62; PULSE 85; RESP 17; TEMP 96.6; O2SAT 100
[2024-03-24] MEDS ORDERED: PETROLATUM,WHITE 28 GM JELLY TP PRN (10:30)
[2024-03-24] MEDS ORDERED: LOPERAMIDE HCL 2 MG CAPSULE PO PRN (10:30)
[2024-03-24] MEDS ORDERED: ALBUTEROL SULFATE HFA 90 MCG/PUFF 8 GM INHALER IH PRN (10:30)
[2024-03-24] MEDS ORDERED: BACITRACIN 28 GM OINTMENT TP PRN (10:30)
[2024-03-24] MEDS ORDERED: DOCUSATE SODIUM 100 MG CAPSULE PO PRN (10:30)
[2024-03-24] MEDS ORDERED: MAGNESIUM HYDROXIDE SUSPENSION 30 ML UDCUP PO PRN (10:30)
[2024-03-24] MEDS ORDERED: OMEPRAZOLE 20 MG CAPSULE PO PRN (10:30)
[2024-03-24] MEDS ORDERED: IBUPROFEN 600 MG TABLET PO PRN (10:30)
[2024-03-24] MEDS ORDERED: BENZOCAINE/MENTHOL LOZENGE PO PRN (10:30)
[2024-03-24] MEDS ORDERED: CloNIDine HCL 0.1 MG TABLET PO PRN (10:30)
[2024-03-24 20:55] VITALS: BP 123/68; PULSE 86; RESP 16; TEMP 97.2; O2SAT 100
[2024-03-25 08:19] VITALS: BP 128/62; PULSE 77; RESP 19; TEMP 97.7; O2SAT 100
[2024-03-25 08:53] LABS: HEMATOCRIT 46.9 % (36-46); HEMOGLOBIN 15.9 g/dL (12.0-16.0); MEAN CORPUSCULAR HEMOGLOBIN 32.5 pg (26.0-34.0); MEAN CORPUSCULAR VOLUME 96 fL (80-100); PLATELET COUNT (AUTO) 310 K/uL (150-450); RED BLOOD CELL COUNT(AUTO) 4.91 MIL/uL (4.00-5.20); RED CELL DISTRIBUTION WIDTH 14.5 % (11.5-14.5); WHITE BLOOD COUNT (AUTO) 10.7 K/uL (4.5-11.0)
[2024-03-25 09:01] LABS: HEMOGLOBIN A1C 5.2 % (3.8-5.6)
[2024-03-25 09:03] LABS: BAND NEUTROPHILS % (MANUAL) 2 % (0-5); LYMPHOCYTES % (MANUAL) 22 % (22-44); MONOCYTES % (MANUAL) 7 % (2-9); RBC MORPHOLOGY COMMENT NORMAL RBC MORPH; SEGMENTED NEUTROPHILS % 69 % (40-70); TOTAL CELLS COUNTED 100
[2024-03-25 09:25] LABS: ANION GAP 6 mmol/L (8-16); CALCIUM, TOTAL 9.5 mg/dL (8.8-10.5); CARBON DIOXIDE 29 mmol/L (22-29); CHLORIDE 100 mmol/L (98-107); CHOL/HDL RATIO 1.7 (3.9-5.7); CHOLESTEROL 122 mg/dL (131-200); CREATININE 0.74 mg/dL (0.60-1.30); GLOMERULAR FILTR. RATE CALC > 60 mL/min (>60); GLUCOSE,RANDOM 103 mg/dL (70-110); HDL CHOLESTEROL 71 mg/dL (40-60); LDL CHOL (CALC.) 42 mg/dL (0-130); POTASSIUM 3.8 mmol/L (3.5-5.1); SODIUM SERUM 135 mmol/L (136-145); TRIGLYCERIDES 43 mg/dL (15-150); UREA NITROGEN, BLOOD 15 mg/dL (7-18)
[2024-03-25] MEDS: LORazepam 2 MG TABLET PO PRN (10:20)
[2024-03-25] MEDS: HALOPERIDOL 5 MG TABLET PO PRN (10:20)
[2024-03-25] MEDS ORDERED: HALOPERIDOL LACTATE 5 MG/ML VIAL ONE (10:49)
[2024-03-25] MEDS ORDERED: LORazepam 2 MG/ML VIAL ONE (10:50)
[2024-03-25] MEDS ORDERED: DiphenhydrAMINE HCL 50 MG/ML VIAL ONE (10:51)
[2024-03-25] MEDS: DiphenhydrAMINE HCL 50 MG/ML VIAL IM ONE (11:16)
[2024-03-25] MEDS: LORazepam 2 MG/ML VIAL IM ONE (11:16)
[2024-03-25] MEDS: HALOPERIDOL LACTATE 5 MG/ML VIAL IM ONE (11:17)
[2024-03-26 08:19] VITALS: BP 108/68; PULSE 104; RESP 16; TEMP 96.8; O2SAT 99
[2024-03-26 20:13] VITALS: TEMP 98.7
[2024-03-26] MEDS: ETHYL ALCOHOL 62% ANTISEPTIC NASAL SANITIZER 0.6 ML AMPUL NASAL SCH (21:04)
[2024-03-26] MEDS: CHLORHEXIDINE GLUCONATE 2% TOWELETTE [2'S/6'S] TP SCH (22:00)
[2024-03-27 08:45] VITALS: BP 121/70; PULSE 105; RESP 18; TEMP 96.5; O2SAT 100
[2024-03-27] MEDS: DIVALPROEX SODIUM 500 MG DR TABLET PO SCH (09:45)
[2024-03-27] MEDS: LevETIRAcetam 500 MG TABLET PO SCH (17:36)
[2024-03-27 20:14] VITALS: BP 119/61; PULSE 80; RESP 18; TEMP 97.3; O2SAT 99
[2024-03-27] MEDS: OLANZapine 10 MG TABLET PO SCH (20:40)
[2024-03-28 08:26] VITALS: BP 114/79; PULSE 105; RESP 16; TEMP 96.9; O2SAT 100
[2024-03-28 20:45] VITALS: BP 119/83; PULSE 94; RESP 18; TEMP 98; O2SAT 97
[2024-03-29 09:07] VITALS: BP 119/75; PULSE 110; RESP 19; TEMP 96.1; O2SAT 100
[2024-03-29] MEDS: DiphenhydrAMINE HCL 50 MG/ML VIAL IM ONE (09:50)
[2024-03-29] MEDS: HALOPERIDOL LACTATE 5 MG/ML VIAL IM ONE (09:50)
[2024-03-29] MEDS: LORazepam 2 MG/ML VIAL IM ONE (09:51)
[2024-03-29 10:45] VITALS: BP 102/75; PULSE 88; RESP 18; TEMP 97.3; O2SAT 99
[2024-03-29 20:28] VITALS: RESP 16
[2024-03-30 08:27] VITALS: BP 107/63; PULSE 110; RESP 16; TEMP 96.5; O2SAT 98
[2024-03-31 08:43] VITALS: BP 110/63; RESP 16; TEMP 97.8; O2SAT 99
[2024-03-31] MEDS: ZOLPIDEM TARTRATE 10 MG TABLET PO PRN (20:49)
[2024-03-31 23:04] VITALS: PULSE 99; RESP 18; O2SAT 98
[2024-04-01 08:31] VITALS: BP 119/74; PULSE 90; RESP 16; TEMP 97.3; O2SAT 98
[2024-04-01 23:00] VITALS: BP 125/84; PULSE 84; RESP 17; TEMP 97.4; O2SAT 96
[2024-04-02 08:16] VITALS: BP 100/64; PULSE 100; RESP 16; TEMP 97.6; O2SAT 99
[2024-04-02 20:24] VITALS: BP 102/68; PULSE 86; RESP 17; TEMP 95.8; O2SAT 97
[2024-04-03 08:23] VITALS: BP 110/66; PULSE 79; RESP 16; TEMP 96.7; O2SAT 98
[2024-04-03 20:28] VITALS: BP 122/80; PULSE 82; RESP 16; TEMP 97; O2SAT 99
[2024-04-04 08:26] VITALS: BP 107/73; PULSE 100; RESP 18; TEMP 97.2; O2SAT 99
[2024-04-04 20:21] VITALS: BP 114/80; PULSE 109; RESP 18; TEMP 97.9; O2SAT 98
[2024-04-05 08:37] VITALS: BP 100/60; PULSE 100; RESP 16; TEMP 97.2; O2SAT 98
[2024-04-06 08:22] VITALS: BP 100/69; PULSE 100; RESP 18; TEMP 97.9; O2SAT 98
[2024-04-06 20:30] VITALS: BP 104/71; PULSE 112; RESP 16; TEMP 96.8; O2SAT 98
[2024-04-07 08:10] VITALS: BP 104/72; PULSE 100; RESP 16; TEMP 97.6; O2SAT 98
[2024-04-07 20:11] VITALS: RESP 17
[2024-04-08 08:04] VITALS: BP 103/70; PULSE 100; RESP 16; TEMP 97; O2SAT 98
[2024-04-08] MEDS: BACITRACIN 28 GM OINTMENT TP SCH (08:17)
[2024-04-08 20:00] VITALS: BP 98/65; PULSE 102; RESP 16; TEMP 97; O2SAT 97
[2024-04-09 08:18] VITALS: BP 103/62; PULSE 105; RESP 16; TEMP 97.3; O2SAT 99
[2024-04-09 20:44] VITALS: BP 102/68; PULSE 103; RESP 16; TEMP 98; O2SAT 98
[2024-04-10 08:44] VITALS: BP 106/68; PULSE 126; RESP 16; TEMP 97.8; O2SAT 97
[2024-04-10 20:09] VITALS: BP 100/60; PULSE 100; RESP 18; TEMP 97.9; O2SAT 97
[2024-04-11 07:41] VITALS: BP 104/68; PULSE 102; RESP 17; TEMP 97.5; O2SAT 98
[2024-04-11 10:54] VITALS: BP_SYST 104; BP_SYST 108; BP_DIAS 68; BP_DIAS 71; PULSE 102; PULSE 87; RESP 17; TEMP 96.5; TEMP 97.5; O2SAT 96; O2SAT 98
[2024-04-11 20:39] VITALS: BP 108/76; PULSE 73; RESP 18; TEMP 97; O2SAT 99
[2024-04-12 08:06] VITALS: BP 102/68; PULSE 100; RESP 16; TEMP 98.6; O2SAT 97
[2024-04-12 20:17] VITALS: BP 107/70; PULSE 88; RESP 18; TEMP 97.2; O2SAT 97
[2024-04-13 08:04] VITALS: BP 104/72; PULSE 105; RESP 16; TEMP 96.3; O2SAT 99
[2024-04-13] MEDS: ONDANSETRON 4 MG TABLET PO PRN (16:54)
[2024-04-13 20:03] VITALS: BP 108/69; PULSE 96; RESP 18; TEMP 97.5
[2024-04-14 08:01] VITALS: BP 104/66; PULSE 94; RESP 17; TEMP 98.1; O2SAT 99
[2024-04-14 20:04] VITALS: BP 106/60; PULSE 96; RESP 18; TEMP 97.8
[2024-04-15 08:23] VITALS: BP 105/69; PULSE 97; RESP 16; TEMP 96.9; O2SAT 98
[2024-04-15 20:19] VITALS: BP 100/68; PULSE 100; RESP 20; TEMP 97.7; O2SAT 98
[2024-04-16 08:16] VITALS: BP 106/66; PULSE 100; RESP 18; TEMP 97.6; O2SAT 98
[2024-04-16] MEDS: MAG HYDROX/ALUMINUM HYD/SIMETH ES 30 ML SUSPENSION UDCUP PO PRN (16:03)
[2024-04-16 20:49] VITALS: BP 108/60; PULSE 88; RESP 18; TEMP 97; O2SAT 99
[2024-04-17 08:14] VITALS: BP 107/69; PULSE 97; RESP 16; TEMP 96.9; O2SAT 97
[2024-04-17 22:12] VITALS: BP 92/54; PULSE 73; RESP 18; TEMP 97.1; O2SAT 99
[2024-04-18 09:15] VITALS: BP 112/71; PULSE 100; RESP 18; TEMP 97.6; O2SAT 98
[2024-04-18 20:28] VITALS: BP 106/66; PULSE 90; RESP 17; TEMP 97.8; O2SAT 98
[2024-04-19 08:10] VITALS: BP 103/72; PULSE 99; RESP 16; TEMP 96.9; O2SAT 98
[2024-04-19 23:53] VITALS: BP 90/51; PULSE 91; RESP 18; TEMP 97.7; O2SAT 72
[2024-04-20 08:16] VITALS: BP 109/62; PULSE 99; RESP 16; TEMP 97.2; O2SAT 99
[2024-04-20 20:10] VITALS: BP 100/70; PULSE 95; RESP 19; TEMP 97.7; O2SAT 100
[2024-04-21 08:34] VITALS: BP 102/65; PULSE 98; RESP 16; TEMP 97; O2SAT 98
[2024-04-21 20:11] VITALS: BP 102/67; PULSE 90; RESP 17; TEMP 97.4; O2SAT 98
[2024-04-22] MEDS: NALTREXONE HCL 50 MG TABLET PO SCH (08:01)
[2024-04-22 08:14] VITALS: BP 100/69; PULSE 94; RESP 16; TEMP 97.5; O2SAT 99
[2024-04-22 20:00] VITALS: BP 100/61; PULSE 76; RESP 16; TEMP 97.4; O2SAT 96
[2024-04-23 08:13] VITALS: BP 110/68; PULSE 100; RESP 16; TEMP 96.9; O2SAT 98
[2024-04-23 20:40] VITALS: BP 109/64; PULSE 86; RESP 18; TEMP 97.3; O2SAT 95
[2024-04-24] MEDS: FLUoxetine HCL 20 MG CAPSULE PO SCH (08:01)
[2024-04-24 08:08] VITALS: BP 106/70; PULSE 97; RESP 16; TEMP 96.9; O2SAT 96
[2024-04-24 20:11] VITALS: BP 98/64; PULSE 85; RESP 17; TEMP 97.1; O2SAT 97
[2024-04-24] MEDS: OLANZapine 10 MG TABLET PO SCH (20:26)
[2024-04-25 08:35] VITALS: BP 98/66; PULSE 95; RESP 16; TEMP 96.5; O2SAT 100
[2024-04-25 20:43] VITALS: BP 95/64; PULSE 78; RESP 16; TEMP 97.3; O2SAT 98
[2024-04-26 08:06] VITALS: BP 103/67; PULSE 100; RESP 16; TEMP 97; O2SAT 97
[2024-04-26 20:49] VITALS: BP 100/64; PULSE 97; RESP 18; TEMP 98; O2SAT 98
[2024-04-27 08:45] VITALS: BP 104/68; PULSE 84; RESP 20; TEMP 96.5; O2SAT 98
[2024-04-27 20:23] VITALS: BP 97/66; PULSE 70; RESP 18; TEMP 97.5; O2SAT 100
[2024-04-28 08:57] VITALS: BP 97/57; PULSE 85; RESP 16; TEMP 97.3; O2SAT 99
[2024-04-28 20:04] VITALS: BP 102/64; PULSE 83; RESP 17; TEMP 97.6
[2024-04-29 08:26] VITALS: BP 106/67; PULSE 89; RESP 16; TEMP 97.9; O2SAT 97
[2024-04-29 21:09] VITALS: BP 98/55; RESP 16; TEMP 97.8; O2SAT 97
[2024-04-30 08:21] VITALS: BP 105/68; PULSE 97; RESP 16; TEMP 96.9; O2SAT 99
[2024-04-30 20:00] VITALS: BP 90/60; PULSE 84; RESP 17; TEMP 97.1; O2SAT 97
[2024-05-01 08:05] VITALS: BP 105/65; PULSE 75; RESP 16; TEMP 96.7; O2SAT 97
[2024-05-01 20:46] VITALS: BP 108/63; PULSE 76; RESP 16; TEMP 97; O2SAT 98
[2024-05-02 08:12] VITALS: BP 101/62; PULSE 84; RESP 16; TEMP 98.5; O2SAT 97
[2024-05-02 09:34] VITALS: RESP 18
[2024-05-02] MEDS: ACETAMINOPHEN 325 MG TABLET PO PRN (09:34)
[2024-05-02 10:34] VITALS: RESP 17
[2024-05-02 20:05] VITALS: BP 100/60; PULSE 71; RESP 17; TEMP 97.5
[2024-05-03 08:25] VITALS: BP 100/62; PULSE 80; RESP 16; TEMP 97; O2SAT 97
[2024-05-03 20:00] VITALS: BP 98/61; PULSE 70; RESP 17; TEMP 98.3; O2SAT 98
[2024-05-04 08:06] VITALS: BP 110/66; PULSE 79; RESP 16; TEMP 96.8; O2SAT 96
[2024-05-04 21:59] VITALS: RESP 16
[2024-05-05 08:15] VITALS: BP 100/63; PULSE 84; RESP 16; TEMP 96.8; O2SAT 96
[2024-05-05 20:27] VITALS: BP 98/60; PULSE 62; RESP 18; TEMP 98.1; O2SAT 96
[2024-05-06 08:16] VITALS: BP 100/69; PULSE 90; RESP 16; TEMP 97.3; O2SAT 97
[2024-05-06 20:00] VITALS: RESP 16
[2024-05-07 08:47] VITALS: BP 100/69; PULSE 90; RESP 16; TEMP 97; O2SAT 98
[2024-05-07 21:55] VITALS: BP 99/66; RESP 18; TEMP 97.7; O2SAT 97
[2024-05-08 08:21] VITALS: BP 98/62; PULSE 93; RESP 16; TEMP 96.9; O2SAT 96
[2024-05-08 20:10] VITALS: BP 108/66; PULSE 90; RESP 16; TEMP 97; O2SAT 98
[2024-05-09] MEDS ORDERED: DIVA-112 PO (07:33)
[2024-05-09] MEDS ORDERED: NALT50TA33 PO (07:33)
[2024-05-09] MEDS ORDERED: FLUO-177 PO (07:33)
[2024-05-09] MEDS ORDERED: OLAN7.5T22 PO (07:34)
[2024-05-09] MEDS ORDERED: LEVE500T8 PO (07:34)
[2024-05-09 08:24] VITALS: BP 122/79; PULSE 100; RESP 16; TEMP 96.9; O2SAT 96
== END 2024-05-09 10:33 | disposition home or self-care (01) | DRG 750 ==
LOC: EMS 19:06 → B2S 03-24 00:11 → UNDODISIN 03-29 12:15 → B3A 03-29 12:57
PROVIDERS: ADMIT Psychiatry & Neurology Psychiatry; ATTEND Psychiatry & Neurology Psychiatry
PROC: GZ52ZZZ Individual Psychotherapy, Cognitive (ICD-10-PCS; principal; 2024-03-28)
DX: F20.9 Schizophrenia, unspecified (principal); G40.909 Epilepsy, unspecified, not intractable, without status epilepticus; R45.851 Suicidal ideations; F32.9 Major depressive disorder, single episode, unspecified; B18.2 Chronic viral hepatitis C; F41.9 Anxiety disorder, unspecified; Z20.822 Contact with and (suspected) exposure to COVID-19; K59.00 Constipation, unspecified; G47.00 Insomnia, unspecified; F90.9 Attention-deficit hyperactivity disorder, unspecified type; F11.90 Opioid use, unspecified, uncomplicated; F15.10 Other stimulant abuse, uncomplicated; Z59.00 Homelessness unspecified; Z60.8 Other problems related to social environment; Z63.4 Disappearance and death of family member; Z87.891 Personal history of nicotine dependence; Z91.199 Patient's noncompliance with other medical treatment and regimen due to unspecified reason
CPT/HCPCS: 80048; 80061; 80164; 80307; 83036; 85007; 85025; 85027; 87081; 99285; G0480; J1200; J1630; J2060; Q0162

== ENCOUNTER 2024-04-07 09:51 | Emergency (ER) | payer MEDICAID, OTHER ==
[~2024-04-07] VITALS: Ht 157.5 cm; Wt 59.0 kg
[2024-04-07 10:04] VITALS: TEMP 98.5
[2024-04-07] MEDS: BACITRACIN 0.9 GM PACKET OINTMENT TP ONE (10:34)
[2024-04-07] MEDS: SODIUM CHLORIDE 0.9% 250 ML IRRIG SOLUTION BOTTLE IRRIG ONE (10:34)
[2024-04-07] MEDS: IBUPROFEN 600 MG TABLET PO ONE (10:34)
[2024-04-07] MEDS: PERTUSS(ACELL),DIPH,TET/PF 0.5 ML SYRINGE [ADULT] IM. ONE (10:36)
[2024-04-07 11:39] VITALS: BP 101/58; PULSE 96; RESP 16; O2SAT 99
== END 2024-04-07 11:40 | disposition short-term general hospital (02) ==
LOC: EMS 09:51
DX: S51.802A Unspecified open wound of left forearm, initial encounter (principal); S10.91XA Abrasion of unspecified part of neck, initial encounter; F17.210 Nicotine dependence, cigarettes, uncomplicated; F12.90 Cannabis use, unspecified, uncomplicated; F15.90 Other stimulant use, unspecified, uncomplicated; Z23 Encounter for immunization; Y08.89XA Assault by other specified means, initial encounter; Y93.89 Activity, other specified; Y92.89 Other specified places as the place of occurrence of the external cause; Y99.8 Other external cause status
CPT/HCPCS: 90471; 90715; 99285

== ENCOUNTER 2025-03-03 11:52 | Inpatient (IN) | payer OTHER ==
[~2025-03-03] VITALS: Ht 157.5 cm; Wt 81.8 kg
[~2025-03-03 11:52] MED LIST changes: +DIVA-112 PO; +FLUO-177 PO; -FLUO-418 PO; -MELA5TAB40 PO; -NALT50TA33 PO; -OLAN10TA26 PO; +OLAN7.5T22 PO; -OMEG-135 PO
[2025-03-03 13:02] LABS: APPEARANCE,URINE HAZY (CLEAR); GLUCOSE, URINE (UA) NEGATIVE (NEGATIVE); LEUKOCYTE ESTERASE ,URINE LARGE (NEGATIVE); NITRATE,URINE NEGATIVE (NEGATIVE); OCCULT BLOOD,URINE SMALL (NEGATIVE); PH,URINE DRUG SCREEN 7.0 (5.0-8.0); SPECIFIC GRAVITIY, URINE 1.026 (1.003-1.030)
[2025-03-03 13:09] LABS: AMPHET/METH SCREEN,URINE NEGATIVE (NEGATIVE); BARBITURATE SCREEN, URINE NEGATIVE (NEGATIVE); CANNABINOID SCREEN,URINE NEGATIVE (NEGATIVE); COCAINE SCREEN,URINE NEGATIVE (NEGATIVE); METHADONE SCREEN, URINE NEGATIVE (NEGATIVE)
[2025-03-03 13:10] LABS: ALCOHOL, URINE DRUG SCREEN NEGATIVE (NEGATIVE); AMORPHOUS SEDIMENT,UR Few /LPF (None Seen); SQUAMOUS EPITHELIAL CELL,UR Many /LPF (None Seen)
[2025-03-03 13:18] LABS: PLATELET COUNT (AUTO) 221 K/uL (150-450); RED BLOOD CELL COUNT(AUTO) 3.94 MIL/uL (4.00-5.20); RED CELL DISTRIBUTION WIDTH 13.8 % (11.5-14.5); WHITE BLOOD COUNT (AUTO) 4.4 K/uL (4.5-11.0)
[2025-03-03 13:30] LABS: CALCIUM, TOTAL 8.4 mg/dL (8.8-10.5); CREATININE 0.61 mg/dL (0.60-1.30); GLOMERULAR FILTR. RATE CALC > 60 mL/min (>60); GLUCOSE,RANDOM 92 mg/dL (70-110); SODIUM SERUM 142 mmol/L (136-145); UREA NITROGEN, BLOOD 28 mg/dL (7-18)
[2025-03-03 13:36] LABS: ASPARTATE AMINOTRANSFERASE 274.0 U/L (15-37); TOTAL PROTEIN, SERUM 7.0 g/dL (6.4-8.2)
[2025-03-03] MEDS ORDERED: MORPHINE SULFATE 4 MG/ML SYRINGE IVP PRN (14:15)
[2025-03-03] MEDS ORDERED: MAGNESIUM HYDROXIDE SUSPENSION 30 ML UDCUP PO PRN (14:15)
[2025-03-03] MEDS ORDERED: HYDROCODONE/ACETAMINOPHEN 5-325 MG TABLET PO PRN (14:15)
[2025-03-03] MEDS ORDERED: ACETAMINOPHEN 325 MG TABLET PO PRN (14:15)
[2025-03-03] MEDS ORDERED: BISACODYL 10 MG RECTAL RECTAL SUPPOSITORY PR PRN (14:15)
[2025-03-03] MEDS ORDERED: ONDANSETRON HCL 4 MG/2 ML VIAL IVP PRN (14:15)
[2025-03-03] MEDS: CefTRIAXone 1 GM/DEXTROSE 50 ML IV ONE (15:36)
[2025-03-03 16:36] VITALS: BP 108/75; PULSE 77; RESP 18; TEMP 97.9; O2SAT 100
[2025-03-03] MEDS: HEPARIN SODIUM,PORCINE 5,000 UNITS/ML VIAL SQ SCH (16:47)
[2025-03-03] MEDS: OLANZapine 7.5 MG TABLET PO SCH (20:25)
[2025-03-03] MEDS: DIVALPROEX SODIUM 500 MG DR TABLET PO SCH (20:25)
[2025-03-03] MEDS: DOCUSATE SODIUM 100 MG CAPSULE PO SCH (20:25)
[2025-03-03] MEDS: ZOLPIDEM TARTRATE 5 MG TABLET PO PRN (20:30)
[2025-03-03 20:50] VITALS: BP 100/72; PULSE 71; RESP 16; TEMP 98.1; O2SAT 99
[2025-03-04 05:22] VITALS: BP 99/68; PULSE 65; RESP 17; TEMP 97.8; O2SAT 100
[2025-03-04 06:07] LABS: HEPATITIS B CORE IGM Negative (Negative)
[2025-03-04 06:15] LABS: PLATELET COUNT (AUTO) 204 K/uL (150-450); RED BLOOD CELL COUNT(AUTO) 3.97 MIL/uL (4.00-5.20); RED CELL DISTRIBUTION WIDTH 13.8 % (11.5-14.5); WHITE BLOOD COUNT (AUTO) 4.4 K/uL (4.5-11.0)
[2025-03-04 06:48] LABS: CALCIUM, TOTAL 8.3 mg/dL (8.8-10.5); CREATININE 0.49 mg/dL (0.60-1.30); GLOMERULAR FILTR. RATE CALC > 60 mL/min (>60); GLUCOSE,RANDOM 81 mg/dL (70-110); SODIUM SERUM 139 mmol/L (136-145); UREA NITROGEN, BLOOD 15 mg/dL (7-18)
[2025-03-04] MEDS ORDERED: SODIUM CHLORIDE 0.9% 500 ML IV ONE (07:49)
[2025-03-04] MEDS: PANTOPRAZOLE SODIUM 40 MG DR TABLET PO SCH (08:46)
[2025-03-04] MEDS: CefTRIAXone 1 GM/DEXTROSE 50 ML IV SCH (08:50)
[2025-03-04 09:01] VITALS: BP 97/68; PULSE 63; RESP 17; TEMP 97.9; O2SAT 100
[2025-03-04 10:07] LABS: TREPONEMA PALLIDUM AB -TPPA Reactive (Non Reactive)
[2025-03-04 10:30] LABS: ASPARTATE AMINOTRANSFERASE 262.0 U/L (15-37); TOTAL PROTEIN, SERUM 6.9 g/dL (6.4-8.2)
[2025-03-04 11:08] LABS: RPR QUANT. (TITER) 1:4 titer (NonRea<1:1)
[2025-03-04] MEDS ORDERED: CIPROFLOXACIN HCL 250 MG TABLET PO SCH (21:00)
[2025-03-06 16:07] LABS: HEPATITIS C AB (EIA) Reactive (Non Reactive); HEPATITIS C RT-PCR,QNT 2470000 IU/mL
== END 2025-03-04 15:55 | DRG 690 ==
LOC: EMS 11:53 → EDH 14:11 → 6S 16:22
PROVIDERS: ADMIT Internal Medicine; ATTEND Internal Medicine
DX: N39.0 Urinary tract infection, site not specified (principal); K52.9 Noninfective gastroenteritis and colitis, unspecified; B18.2 Chronic viral hepatitis C; G40.909 Epilepsy, unspecified, not intractable, without status epilepticus; K80.20 Calculus of gallbladder without cholecystitis without obstruction; F20.9 Schizophrenia, unspecified; F11.90 Opioid use, unspecified, uncomplicated; F90.9 Attention-deficit hyperactivity disorder, unspecified type; A53.0 Latent syphilis, unspecified as early or late; Z87.891 Personal history of nicotine dependence
CPT/HCPCS: 74176; 76705; 80048; 80074; 80076; 80307; 81001; 83690; 83735; 85025; 85610; 86592; 86593; 86780; 87086; 87522; 99285; J0696; J1644; J7040